=== PATIENT | male | born 1990 | race Two or more races ===

== ENCOUNTER 2018-04-16 21:20 | Emergency (ER) | payer SELFPAY ==
[~2018-04-16] VITALS: Ht 170.2 cm; Wt 94.0 kg
[2018-04-16 22:49] VITALS: BP 132/84
== END 2018-04-16 22:50 | disposition home or self-care (01) ==
LOC: ED 21:52
DX: R07.89 Other chest pain (principal)
CPT/HCPCS: 71046; 93005; 99284